=== PATIENT | male | born 2000 | race Two or more races ===

== ENCOUNTER 2023-12-12 13:15 | Emergency (ER) | payer OTHER ==
[~2023-12-12] VITALS: Ht 172.7 cm; Wt 81.6 kg
[2023-12-12] MEDS ORDERED: CEFTRIAXONE SODIUM 1,000 MG VIAL IM STA (14:08)
[2023-12-12] MEDS ORDERED: KETOROLAC TROMETHAMINE 30 MG VIAL IM STA (14:08)
[2023-12-12] MEDS ORDERED: MEPERIDINE HCL/PF 25 MG/ML VIAL IM STA (14:09)
[2023-12-12] MEDS ORDERED: DEXAMETHASONE SODIUM PHOSPHATE 4 MG/ML VIAL IM STA (14:09)
[2023-12-12] MEDS ORDERED: ACETAMINOPHEN 500 MG GEL..CAP PO STA (14:18)
[2023-12-12] MEDS ORDERED: OxyCODONE HCL/APAP UD (PERCOCET) PO STA ×2 (14:18→18:10)
[2023-12-12] MEDS ORDERED: AMOXICILLIN/POTASSIUM CLAV 875-125 TABLET PO STA (14:18)
[2023-12-12] MEDS ORDERED: KETOROLAC TROMETHAMINE 10 MG TABLET PO STA (14:19)
[2023-12-12] MEDS ORDERED: OxyCODONE HCL ER 10MG TAB (OxyCONTIN) PO STA (18:01)
[2023-12-12] MEDS ORDERED: PERCOCET 10-321 EACH PO (19:10)
== END 2023-12-12 19:22 | disposition home or self-care (01) ==
LOC: ER 13:16
DX: S00.93XA Contusion of unspecified part of head, initial encounter (principal); W17.89XA Other fall from one level to another, initial encounter; Y93.89 Activity, other specified; Y92.832 Beach as the place of occurrence of the external cause; Y99.9 Unspecified external cause status; M54.2 Cervicalgia; Z88.8 Allergy status to other drugs, medicaments and biological substances; Z87.09 Personal history of other diseases of the respiratory system

== ENCOUNTER 2024-07-10 23:02 | Emergency (ER) | payer OTHER ==
[~2024-07-10] VITALS: Ht 172.7 cm; Wt 81.6 kg
[~2024-07-10 23:02] MED LIST: PERCOCET 10-321 EACH PO
[2024-07-11] MEDS ORDERED: HYOSCYAMINE SULFATE 0.125 MG TAB.SUBL SL ONE (00:45)
[2024-07-11] MEDS ORDERED: ONDANSETRON HCL 2 MG/ML VIAL IV STA (00:46)
[2024-07-11] MEDS ORDERED: FAMOtidine 10 MG/ML (4ML VIAL) IV PUSH STA (00:46)
[2024-07-11 01:23] LABS: HEMATOCRIT 46.7 % (39.0-48.0); HEMOGLOBIN 16.2 g/dL (13-16.00); MEAN CELL VOLUME 92.1 fL (80.0-100.00); MEAN CORPUSCULAR HGB CONC 34.7 g/dl (32.0-36.0); PLATELET COUNT 295 K/uL (150-450); RED BLOOD COUNT 5.07 M/uL (4.00-6.00); RED CELL DISTRIBUTION WIDTH 13.3 % (11.5-14.5)
[2024-07-11 01:31] LABS: CREATININE SERUM 1.04 mg/dL (0.70-1.30); GFR 87.01; POTASSIUM 3.95 mEq/L (3.5-5.1)
== END 2024-07-11 | disposition home or self-care (01) ==
LOC: ER 23:04
DX: G20.A1 Parkinson's disease without dyskinesia, without mention of fluctuations (principal); R06.02 Shortness of breath; Z20.822 Contact with and (suspected) exposure to COVID-19; I10 Essential (primary) hypertension; E11.9 Type 2 diabetes mellitus without complications; Z79.84 Long term (current) use of oral hypoglycemic drugs